=== PATIENT | male | born 1990 | race African-American/Black ===

== ENCOUNTER 2017-01-15 13:43 | Emergency (ER) | payer SELFPAY ==
[~2017-01-15] VITALS: Ht 157.4 cm; Wt 67.1 kg
[2017-01-15 14:18] LABS: BILIRUBIN NEGATIVE (NEGATIVE); BLOOD 1+ (NEGATIVE); CLARITY SL CLOUDY (CLEAR); COLOR YELLOW (YELLOW); GLUCOSE NEGATIVE (NEGATIVE); KETONE NEGATIVE (NEGATIVE); LEUKO ESTERASE 1+ (NEGATIVE); NITRITE NEGATIVE (NEGATIVE); SPECIFIC GRAVITY 1.025 (1.005-1.030)
[2017-01-15 14:36] LABS: BACTERIA TRACE
[2017-01-15 14:38] LABS: RBC 16-20 rbc/hpf (0-2); WBC 21-30 wbc/hpf (0-5)
== END 2017-01-15 14:34 | disposition home or self-care (01) ==
LOC: ED 13:43
PROVIDERS: Nurse Practitioner Family
DX: Z20.2 Contact with and (suspected) exposure to infections with a predominantly sexual mode of transmission (principal); R03.0 Elevated blood-pressure reading, without diagnosis of hypertension; Z88.6 Allergy status to analgesic agent

== ENCOUNTER 2017-09-03 20:19 | Emergency (ER) | payer OTHER ==
[~2017-09-03] VITALS: Ht 157.4 cm; Wt 72.6 kg
== END 2017-09-03 20:36 | disposition home or self-care (01) ==
LOC: ED 20:19
DX: R11.2 Nausea with vomiting, unspecified (principal); Z88.6 Allergy status to analgesic agent

== ENCOUNTER 2022-03-14 07:49 | Emergency (ER) | payer OTHER ==
[~2022-03-14] VITALS: Ht 165.1 cm; Wt 71.7 kg
[2022-03-14] MEDS ORDERED: TYLENOL325 M1 PO (08:29)
== END 2022-03-14 08:45 | disposition home or self-care (01) ==
LOC: ED 07:49
DX: S49.91XA Unspecified injury of right shoulder and upper arm, initial encounter (principal); Z88.6 Allergy status to analgesic agent; W20.8XXA Other cause of strike by thrown, projected or falling object, initial encounter; Y93.89 Activity, other specified; Y92.89 Other specified places as the place of occurrence of the external cause; Y99.8 Other external cause status